=== PATIENT | male | born 1960 | race Caucasian/White ===

== ENCOUNTER → 2018-12-06 | Outpatient (CLI) | payer BC ==
[2018-12-06 14:57] LABS: BASOPHILS ABSOLUTE AUTO 0.06 K/mm3 (0.00-0.23); BASOPHILS PERCENT AUTO 1 % (0-2); EOSINOPHILS ABSOLUTE AUTO 0.19 K/mm3 (0.00-0.68); EOSINOPHILS PERCENT AUTO 3 % (0-6); Hematocrit 41.6 % (37.0-53.0); Hemoglobin 14.2 g/dL (13.5-17.5); IMMATURE GRAN ABSOLUTE AUTO 0.03 K/mm3 (0.00-0.10); IMMATURE GRAN PERCENT AUTO 0 % (0-1); LYMPHOCYTES ABSOLUTE AUTO 2.66 K/mm3 (0.84-5.20); LYMPHOCYTES PERCENT AUTO 37 % (21-46); MONOCYTES ABSOLUTE AUTO 0.82 K/mm3 (0.16-1.47); MONOCYTES PERCENT AUTO 11 % (4-13); Mean Corpuscular HGB 34.4 pg (26.0-34.0); Mean Corpuscular HGB Conc 34.1 g/dL (31.5-36.5); Mean Corpuscular Volume 101 fL (80-100); NEUTROPHILS ABSOLUTE AUTO 3.53 K/mm3 (1.96-9.15); NEUTROPHILS PERCENT AUTO 49 % (41-73); Platelet Count 228 K/mm3 (150-400); RDW Coefficient Variation 14.6 % (11.7-14.2); RDW Standard Deviation 54.4 fL (35.1-46.3); Red Blood Cell Count 4.13 M/mm3 (4.30-5.90); White Blood Cell Count 7.29 K/mm3 (4.00-11.30)
[2018-12-06 15:25] LABS: Alanine Aminotransfer (ALT/SGP 35 U/L (12-78); Albumin/Globulin Ratio 1.1 (0.8-1.8); Alk Phos 64 U/L (50-136); Anion Gap 5 mmol/L (6-16); Aspartate Aminotrans (AST/SGOT 16 U/L (12-37); Bilirubin, Total 0.6 mg/dL (0.1-1.0); Blood Urea Nitrogen 13 mg/dL (8-24); Bun/Creatinine Ratio 16.7 (12.0-20.0); CHOL/HDL RATIO 6.3; CO2, Blood 23 mmol/L (21-32); Chloride, Blood 109 mmol/L (98-108); Cholesterol 308 mg/dL (50-200); Creatinine, Blood 0.78 mg/dL (0.60-1.20); Globulin, Blood 3.7 g/dL (2.2-4.0); Glomerular Filtration Rate >60 (60-); Glucose, Blood 104 mg/dL (70-99); HDL Cholesterol 49 mg/dL (>39); LDL/HDL RATIO Unable to Calculate; Low Density Lipoprotein Chol Unable to Calculate mg/dL (0-110); Potassium, Blood 4.1 mmol/L (3.5-5.5); Sodium, Blood 137 mmol/L (136-145); Total Protein, Blood 7.7 g/dL (6.4-8.2); Triglycerides 735 mg/dL (30-160); Very Low Density Lipoprot Chol Unable to Calculate mg/dL (6-32)
== END | disposition home or self-care (01) ==
LOC: LAB SHORT 14:26 → LAB 14:26
PROVIDERS: Physician Assistant
DX: I10 Essential (primary) hypertension (principal); E78.5 Hyperlipidemia, unspecified; E03.9 Hypothyroidism, unspecified
CPT/HCPCS: 80053; 80061; 84443; 85025

== ENCOUNTER 2023-10-08 06:38 | Day surgery (SDC) | payer BC ==
[~2023-10-08] VITALS: Ht 177.8 cm; Wt 102.8 kg
[2023-10-08] MEDS ORDERED: AMLO10 (06:59)
[2023-10-08] MEDS ORDERED: LEVSOD100 (07:02)
[2023-10-08] MEDS ORDERED: propofoL 20 ML IV ONE ×2 (07:23→08:04)
[2023-10-08] MEDS ORDERED: FentaNYL Citrate 50 MCG/ML 2 ML Injection ONE ×4 (07:23→09:05)
[2023-10-08] MEDS ORDERED: Lactated Ringer's 1,000 ML IV ONE ×2 (07:28→07:33)
[2023-10-08] MEDS ORDERED: EPINEPhrine HCl 1 MG / ML 30ML Vial ONE (07:35)
[2023-10-08] MEDS ORDERED: Ropivacaine 0.5% HCl/Pf 5 MG/ML 20ML VIAL ONE (07:35)
[2023-10-08] MEDS ORDERED: Midazolam HCl 1MG / ML 2ML Vial ONE (07:47)
[2023-10-08] MEDS ORDERED: NS 50 ML IV ONE (07:53)
[2023-10-08] MEDS ORDERED: CeFAZolin Sodium 2,000 MG VIAL ONE (07:53)
[2023-10-08] MEDS ORDERED: Dexamethasone Sod Phos 10 MG/ML 1ML VIAL ONE (08:08)
[2023-10-08] MEDS ORDERED: Ondansetron HCl 2 MG / ML 2ML Vial ONE (08:08)
--- NOTE | 2023-10-08 08:20 | NUR ---
10/08/23 0819 Romi Xiong ROPIVACAINE 0.5% 20MLS MIXED AND VERIFIED W/ EPI 0.1MG (1MG/ML) TO MAKE ROPIVACAINE 0.5% W/ EPI 1:200,000 FOR INJECTION AT OPSITE BY DR. MEDINA
[2023-10-08] MEDS ORDERED: Labetalol HCL 5 MG/ML 4ML Injection (Single Dose) ONE (08:22)
[2023-10-08] MEDS ORDERED: OxyCODONE HCL 5 MG TAB ONE (09:41)
[2023-10-08 09:43] VITALS: BP 147/82
== END 2023-10-08 10:00 | disposition home or self-care (01) ==
LOC: ORSCSDS 06:38
PROVIDERS: Orthopaedic Surgery Sports Medicine
PROC: 0SBC4ZZ Excision of Right Knee Joint, Percutaneous Endoscopic Approach (ICD-10-PCS; principal; 2023-10-08 08:00)
DX: S83.241A Other tear of medial meniscus, current injury, right knee, initial encounter (principal); M94.261 Chondromalacia, right knee; I10 Essential (primary) hypertension; E05.90 Thyrotoxicosis, unspecified without thyrotoxic crisis or storm; Z79.899 Other long term (current) drug therapy
CPT/HCPCS: A9270; J0171; J0690; J1100; J2250; J2405; J2704; J2795; J3010; J7120